=== PATIENT | male | born 1955 | race Caucasian/White ===

== ENCOUNTER 2019-02-07 18:14 | Inpatient (IN) | payer OTHER ==
[~2019-02-07] VITALS: Ht 167.6 cm; Wt 121.9 kg
[~2019-02-07 18:14] MED LIST: ALPRAZOLAM 0.50.5 MG PO; AMLODIPINE BESYL5 M1 PO; CATAPRES0.2 MG PO; CLONIDINE0.1 PO; COZAAR 50 MG TA50 M2; FLEXERIL PO; HYDROCODONE-APA1 TA1 PO; IBUPROFEN 800800 M1 PO; LASIX 20 MG TAB20 MG PO; LEXAPRO 10 MG T10 M1 PO; MOBIC15 MG PO; NEURONTIN 300300 M1 PO; NORCO 10-325 T1 EACH PO; SUMATRIPTAN SU100 MG PO; TESTOSTERO200 MG/1 M IM; TOPAMAX 25 MG T25 M1 PO; VALIUM5 MG PO; XANAX 0.5 MG0.5 MG PO; XANAX XR0.5 MG PO; ZANAFLEX4 MG PO
[2019-02-07 18:15] VITALS: BP 169/125
[2019-02-07 18:50] LABS: HEMATOCRIT 56.2 % (42.0-52.0); HEMOGLOBIN 18.5 gm/dL (14.0-18.0); MCH 30.5 pg (26.0-34.0); MCV 92.4 fL (80.0-100.0); PLATELET COUNT 241 thou/uL (150-400); RBC 6.09 mil/uL (4.50-6.00); WBC 20.6 thou/uL (4.0-11.0)
[2019-02-07 19:06] LABS: CALCIUM 9.4 mg/dL (8.5-10.1); CREATININE 1.3 mg/dL (0.7-1.3); POTASSIUM 4.7 mmol/L (3.5-5.1)
[2019-02-07 19:10] LABS: ALBUMIN 3.9 g/dL (3.4-5.0); TOTAL BILIRUBIN 1.6 mg/dL (<0.1-1.0); TOTAL PROTEIN 8.7 g/dL (6.4-8.2)
[2019-02-07 19:21] LABS: ABSOLUTE NEUTROPHILS 17.1 thou/uL (1.4-8.2); PLATELET ESTIMATE NORMAL
[2019-02-07 20:12] LABS: URINE BILIRUBIN NEGATIVE (Negative); URINE BLOOD 1+ (Negative); URINE CLARITY CLEAR; URINE COLOR YELLOW; URINE GLUCOSE-RANDOM* NEGATIVE (Negative); URINE KETONES NEGATIVE (Negative); URINE NITRITE-REFLEX NEGATIVE (Negative); URINE PROTEIN (DIPSTICK) TRACE (Negative); URINE SPECIFIC GRAVITY 1.015 (1.005-1.035)
[2019-02-07 20:19] LABS: URINE LEUKOCYTES-REFLEX 1+ (Negative)
[2019-02-07 20:46] LABS: HYALINE CASTS 0-3 Few /LPF (None Seen); SQUAMOUS 0-3 Few /LPF (0-3)
[2019-02-07 20:47] LABS: BACTERIA-REFLEX 1-9 Few /HPF (None Seen); CRYSTALS None Seen /LPF (None Seen); MUCUS 0-3 Light strn/LPF (None Seen); URINE RBC None Seen /HPF (0-2)
[2019-02-07 21:30] LABS: APTT 30.7 Seconds (24.5-32.8); INR 1.1; PROTIME 11.6 Seconds (9.3-11.4)
[2019-02-07 21:33] LABS: BE(vivo) -5.7 mmol/L (-2 to +3); HCO3 16.6 mmol/L (22.0-26.0); PCO2 26.3 mmHg (35.0-45.0); pH 7.419 (7.360-7.450); sO2 93.8 % (92.0-98.0)
[2019-02-07 22:07] VITALS: BP 114/67
[2019-02-07 22:36] VITALS: BP 108/62
[2019-02-07 22:49] VITALS: BP 112/67
[2019-02-08] VITALS (7 sets, daily range): BP systolic 108–135; BP diastolic 55–84
[2019-02-08 05:24] LABS: HEMATOCRIT 50.3 % (42.0-52.0); HEMOGLOBIN 16.6 gm/dL (14.0-18.0); MCH 30.7 pg (26.0-34.0); RBC 5.41 mil/uL (4.50-6.00); RDW 14.9 % (10.5-14.5); WBC 28.3 thou/uL (4.0-11.0)
[2019-02-08 05:35] LABS: CALCIUM 8.3 mg/dL (8.5-10.1); CREATININE 1.3 mg/dL (0.7-1.3)
[2019-02-08 05:38] LABS: POTASSIUM 3.2 mmol/L (3.5-5.1)
[2019-02-08 11:39] LABS: PHOSPHORUS 2.5 mg/dL (2.5-4.9)
[2019-02-08 11:48] LABS: URINE BLOOD 3+ (Negative); URINE GLUCOSE-RANDOM* NEGATIVE (Negative); URINE KETONES NEGATIVE (Negative); URINE LEUKOCYTES-REFLEX NEGATIVE (Negative); URINE PROTEIN (DIPSTICK) 1+ (Negative); URINE SPECIFIC GRAVITY >= 1.030 (1.005-1.035)
[2019-02-08 11:49] LABS: URINE CLARITY HAZY; URINE COLOR DARK YELLOW; URINE NITRITE-REFLEX POSITIVE (Negative)
[2019-02-08 11:50] LABS: ICTOTEST (BILI CONFIRMATORY) Negative (Negative); URINE BILIRUBIN NEGATIVE (Negative)
[2019-02-08 12:01] LABS: BACTERIA-REFLEX 1-9 Few /HPF (None Seen); CASTS None Seen /LPF (None Seen); CRYSTALS None Seen /LPF (None Seen); SQUAMOUS None Seen /LPF (0-3); URINE WBC-REFLEX None Seen /HPF (0-5)
[2019-02-08 12:04] LABS: BE(vivo) -4.5 mmol/L (-2 to +3); HCO3 19.4 mmol/L (22.0-26.0); PCO2 33.2 mmHg (35.0-45.0); PO2 78.6 mmHg (80.0-100.0); pH 7.385 (7.360-7.450); sO2 95.6 % (92.0-98.0)
--- NOTE | 2019-02-08 13:20 | EKG ---
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 : 1955 Requested By: Basilia Mcgill Order Number: [id number] MD: Rio Keyes Measurements Intervals [place] Rate: 137 P: 41 IA: 148 QRS: -59 QRSD: 104 T: 43 QT: 282 QTc: 426 Interpretive Statements Sinus tachycardia Incomplete RBBB and LAFB RSR' in V1 or V2, right VCD Poor R wave progression No interpretable ECGs available for comparison Electronically Signed On 02-08-2019 13:20:40 FREIGHT AGENT by Rio Keyes [email or web address] <ELECTRONICALLY SIGNED> By: Rio Keyes MD, FAC 02/08/19 1320 05 05 Rio Keyes MD, [facility] /EPI
[2019-02-08] MEDS ORDERED: PROVIGIL 100 M100 MG PO (18:25)
[2019-02-08 19:53] LABS: MCH 30.6 pg (26.0-34.0); MCHC 32.9 g/dL (28.0-37.0); MCV 92.9 fL (80.0-100.0); PLATELET COUNT 168 thou/uL (150-400); RBC 4.74 mil/uL (4.50-6.00); RDW 15.1 % (10.5-14.5); WBC 23.5 thou/uL (4.0-11.0)
[2019-02-08 19:54] LABS: HEMOGLOBIN 14.5 gm/dL (14.0-18.0)
[2019-02-08 20:01] LABS: CALCIUM 8.2 mg/dL (8.5-10.1); CREATININE 1.4 mg/dL (0.7-1.3); POTASSIUM 3.6 mmol/L (3.5-5.1)
[2019-02-08 20:15] LABS: ABSOLUTE NEUTROPHILS 21.9 thou/uL (1.4-8.2); ATYPICAL LYMPHS 1 %
[2019-02-09 03:43] VITALS: BP 121/71
[2019-02-09 05:40] LABS: HEMATOCRIT 42.8 % (42.0-52.0); HEMOGLOBIN 14.1 gm/dL (14.0-18.0); MCH 30.5 pg (26.0-34.0); MCV 92.2 fL (80.0-100.0); PLATELET COUNT 162 thou/uL (150-400); RBC 4.64 mil/uL (4.50-6.00); RDW 14.9 % (10.5-14.5); WBC 22.4 thou/uL (4.0-11.0)
[2019-02-09 06:07] LABS: ALBUMIN 2.3 g/dL (3.4-5.0); CALCIUM 8.2 mg/dL (8.5-10.1); CREATININE 1.1 mg/dL (0.7-1.3); MAGNESIUM 2.1 mg/dL (1.8-2.4); PHOSPHORUS 1.3 mg/dL (2.5-4.9); POTASSIUM 3.6 mmol/L (3.5-5.1); TOTAL BILIRUBIN 0.6 mg/dL (<0.1-1.0); TOTAL PROTEIN 6.1 g/dL (6.4-8.2)
[2019-02-09 06:54] LABS: ABSOLUTE NEUTROPHILS 19.9 thou/uL (1.4-8.2); PLATELET ESTIMATE NORMAL
[2019-02-09 06:55] LABS: ANISOCYTOSIS SLIGHT
[2019-02-09 07:44] VITALS: BP 115/73
[2019-02-09 15:25] VITALS: BP 117/85
[2019-02-09 20:31] VITALS: BP 200/81
[2019-02-09 20:42] VITALS: BP 186/75
[2019-02-10] VITALS (9 sets, daily range): BP systolic 151–194; BP diastolic 72–93
[2019-02-10 05:56] LABS: MCH 30.6 pg (26.0-34.0); MCHC 33.3 g/dL (28.0-37.0); MCV 91.8 fL (80.0-100.0); RBC 4.9 mil/uL (4.50-6.00); RDW 15.2 % (10.5-14.5); WBC 18.8 thou/uL (4.0-11.0)
[2019-02-10 06:09] LABS: ALBUMIN 2.6 g/dL (3.4-5.0); CALCIUM 8.4 mg/dL (8.5-10.1); POTASSIUM 3.4 mmol/L (3.5-5.1)
[2019-02-11 04:32] VITALS: BP 165/82
[2019-02-11 05:48] LABS: HEMATOCRIT 45.8 % (42.0-52.0); HEMOGLOBIN 15.2 gm/dL (14.0-18.0); MCH 30.5 pg (26.0-34.0); MCHC 33.1 g/dL (28.0-37.0); MCV 92.2 fL (80.0-100.0); RBC 4.97 mil/uL (4.50-6.00); RDW 14.9 % (10.5-14.5); WBC 16.6 thou/uL (4.0-11.0)
[2019-02-11 06:05] LABS: CALCIUM 8.4 mg/dL (8.5-10.1); CREATININE 0.9 mg/dL (0.7-1.3); POTASSIUM 3.6 mmol/L (3.5-5.1)
[2019-02-11 07:29] VITALS: BP 179/89
[2019-02-11 11:32] VITALS: BP 158/79
--- NOTE | 2019-02-11 14:06 | PATH ---
[facility] [address] [place] [address] PATHOLOGY RPT PROCEDURE Name: LOUIE CLARK JR Room #: 352-P ADM IN M.R.#: [id number] Admission: 02/07/19 Date of : 51 Discharge: Report #: [id number] Path Case #: [id number] [facility] Accession Number: [id number] . 01 Material submitted: . appendix - APPENDIX . 01 Clinical history: . Acute appendicitis, perforated . 02 Diagnosis: Appendix, appendectomy: - Marked acute appendicitis along with marked acute serositis and changes compatible with perforation. - Fibrous obliteration of the tip. 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 02 Electronically signed: . Merlyn Santiago MD, Pathologist NPI- [id number] . 01 Gross description: . Received in formalin, labeled "Louie Clark JR, appendix", is an disrupted appendix measuring 5.3 cm length and ranging from 0.5 cm (proximal) to 0.1 cm (distal) in diameter and attached mesoappendix (5.5 x 1.0 x 0.4 cm). The proximal resection margin is disrupted up to 2.0 cm in length. The proximal resection margin is inked black and at the disrupted area orange. The serosa is covered by purulent exudate and possible perforation. The lumen proximal to mid dilated and filled with hemorrhagic material and medial to distal stenotic. The wall has an average thickness of 0.1 cm. The aliyah-appendiceal soft tissue has a yellow cut surface. No discrete fecalith is identified. Representatively submitted in A1-A2 (B2 = possible perforation). ([facility]; 02/09/2019) [facility] 02/09/2019 1804 Local . 02 Pathologist provided ICD-10: K35.80 . 02 CPT . 297074 Specimen Comment: A courtesy copy of this report has been sent to [phone], [phone]- Specimen Comment: [phone], Specimen Comment: Report sent to ,DR BOBBY / DR SEWELL Performed at: [address] [place] [address] PATHOLOGY RPT PROCEDURE Name: LOUIE CLARK Room #: 352-P ADM IN M.R.#: [id number] Admission: 02/07/19 Date of : 51 Discharge: Report #: [id number] Path Case #: [id number] [address] [facility] [address], [place] [id number] MD Eusebio Torrez MD Phone: [phone] Performed at: [address] [id number] MD Merlyn Santiago MD Phone: [phone]
[2019-02-11 15:30] VITALS: BP 157/82
[2019-02-11 19:57] VITALS: BP 160/77
[2019-02-12 04:02] VITALS: BP 179/75
[2019-02-12 06:19] LABS: ALBUMIN 2.5 g/dL (3.4-5.0); CALCIUM 8.4 mg/dL (8.5-10.1); CREATININE 0.8 mg/dL (0.7-1.3); MAGNESIUM 2.2 mg/dL (1.8-2.4); PHOSPHORUS 1.9 mg/dL (2.5-4.9); POTASSIUM 3.5 mmol/L (3.5-5.1); TOTAL BILIRUBIN 0.6 mg/dL (<0.1-1.0); TOTAL PROTEIN 6.2 g/dL (6.4-8.2)
[2019-02-12 07:42] VITALS: BP 150/74
[2019-02-12 15:12] VITALS: BP 143/87
[2019-02-12 19:21] VITALS: BP 150/79
[2019-02-13 03:21] VITALS: BP 167/91
[2019-02-13 05:59] LABS: CALCIUM 8.4 mg/dL (8.5-10.1); CREATININE 0.9 mg/dL (0.7-1.3); MAGNESIUM 2.1 mg/dL (1.8-2.4); PHOSPHORUS 2.5 mg/dL (2.5-4.9); POTASSIUM 3.7 mmol/L (3.5-5.1)
[2019-02-13 09:48] LABS: HEMATOCRIT 48.3 % (42.0-52.0); HEMOGLOBIN 15.8 gm/dL (14.0-18.0); MCH 30.3 pg (26.0-34.0); MCHC 32.7 g/dL (28.0-37.0); MCV 92.9 fL (80.0-100.0); PLATELET COUNT 199 thou/uL (150-400); RDW 15.2 % (10.5-14.5); WBC 20.4 thou/uL (4.0-11.0)
[2019-02-13 10:58] LABS: ABSOLUTE NEUTROPHILS 15.7 thou/uL (1.4-8.2); PLATELET ESTIMATE NORMAL
[2019-02-13 15:48] VITALS: BP 149/86
[2019-02-13 20:00] VITALS: BP 149/76
[2019-02-14 03:25] VITALS: BP 151/74
[2019-02-14 04:26] LABS: CALCIUM 8.6 mg/dL (8.5-10.1); MAGNESIUM 2.1 mg/dL (1.8-2.4); PHOSPHORUS 2.2 mg/dL (2.5-4.9); POTASSIUM 3.8 mmol/L (3.5-5.1)
[2019-02-14 08:05] VITALS: BP 149/64
[2019-02-14 11:04] LABS: URINE BILIRUBIN NEGATIVE (Negative); URINE BLOOD NEGATIVE (Negative); URINE CLARITY CLEAR; URINE COLOR YELLOW; URINE GLUCOSE-RANDOM* NEGATIVE (Negative); URINE KETONES NEGATIVE (Negative); URINE LEUKOCYTES NEGATIVE (Negative); URINE NITRITE NEGATIVE (Negative); URINE PROTEIN (DIPSTICK) NEGATIVE (Negative); URINE SPECIFIC GRAVITY 1.015 (1.005-1.035); URINE UROBILINOGEN 0.2 E.U./dl (0.2-1.0)
[2019-02-14 15:08] VITALS: BP 147/66
[2019-02-14 19:30] VITALS: BP 165/72
[2019-02-15 06:00] VITALS: BP 140/66
[2019-02-15 06:05] LABS: HEMATOCRIT 44.1 % (42.0-52.0); HEMOGLOBIN 14.6 gm/dL (14.0-18.0); MCH 30.2 pg (26.0-34.0); MCV 91.4 fL (80.0-100.0); RBC 4.82 mil/uL (4.50-6.00); WBC 18.2 thou/uL (4.0-11.0)
[2019-02-15 06:20] LABS: CALCIUM 8.5 mg/dL (8.5-10.1); CREATININE 0.9 mg/dL (0.7-1.3); MAGNESIUM 2.1 mg/dL (1.8-2.4); PHOSPHORUS 2.5 mg/dL (2.5-4.9); POTASSIUM 3.4 mmol/L (3.5-5.1)
[2019-02-15 07:51] VITALS: BP 158/65
[2019-02-15 15:01] VITALS: BP 131/61
[2019-02-15 19:22] VITALS: BP 149/64
[2019-02-16 04:35] VITALS: BP 130/54
[2019-02-16 05:04] LABS: HEMATOCRIT 41.9 % (42.0-52.0); HEMOGLOBIN 13.9 gm/dL (14.0-18.0); MCH 30.3 pg (26.0-34.0); MCHC 33.2 g/dL (28.0-37.0); MCV 91.4 fL (80.0-100.0); RBC 4.59 mil/uL (4.50-6.00); RDW 15.1 % (10.5-14.5)
[2019-02-16 05:10] LABS: CALCIUM 8.4 mg/dL (8.5-10.1); CREATININE 0.9 mg/dL (0.7-1.3); PHOSPHORUS 2.7 mg/dL (2.5-4.9); POTASSIUM 3.9 mmol/L (3.5-5.1)
[2019-02-16 07:31] VITALS: BP 140/59
[2019-02-16] MEDS ORDERED: FLOMAX0.4 MG PO (08:39)
[2019-02-16] MEDS ORDERED: NEURONTIN600 MG PO (08:40)
[2019-02-16] MEDS ORDERED: AUGMENTIN 875-1 EACH PO (08:44)
[2019-02-16 15:27] VITALS: BP 139/61
[2019-02-16 19:57] VITALS: BP 137/78
[2019-02-17 04:29] VITALS: BP 122/61
[2019-02-17 07:33] VITALS: BP 124/74
[2019-02-17 12:43] VITALS: BP 124/74
[2019-02-17 15:25] VITALS: BP 124/74
== END 2019-02-17 17:02 | disposition home health service (06) | DRG 853 ==
LOC: ER 18:14 → 3W 21:32 → EROBS 21:32 → 3W 22:28 → ENTRNSPT 02-17 16:33 → 3W 02-17 17:02
PROVIDERS: Emergency Medicine Emergency Medical Services; Hospitalist; Nurse Practitioner Acute Care; ADMIT Internal Medicine
PROC: 0DTJ4ZZ Resection of Appendix, Percutaneous Endoscopic Approach (ICD-10-PCS; principal; 2019-02-08)
PROC: 3E0336Z Introduction of Nutritional Substance into Peripheral Vein, Percutaneous Approach (ICD-10-PCS; 2019-02-11)
PROC: 0D9670Z Drainage of Stomach with Drainage Device, Via Natural or Artificial Opening (ICD-10-PCS; 2019-02-11)
PROC: 02HV33Z Insertion of Infusion Device into Superior Vena Cava, Percutaneous Approach (ICD-10-PCS; 2019-02-11)
PROC: B548ZZA Ultrasonography of Superior Vena Cava, Guidance (ICD-10-PCS; 2019-02-11)
DX: A41.9 Sepsis, unspecified organism (principal); K35.33 Acute appendicitis with perforation, localized peritonitis, and gangrene, with abscess; N39.0 Urinary tract infection, site not specified; E46 Unspecified protein-calorie malnutrition; J98.11 Atelectasis; K56.7 Ileus, unspecified; Z68.41 Body mass index [BMI] 40.0-44.9, adult; G35 Multiple sclerosis; F41.9 Anxiety disorder, unspecified; I10 Essential (primary) hypertension; G43.909 Migraine, unspecified, not intractable, without status migrainosus; F32.9 Major depressive disorder, single episode, unspecified; G90.4 Autonomic dysreflexia; N40.1 Benign prostatic hyperplasia with lower urinary tract symptoms; R33.8 Other retention of urine; E66.01 Morbid (severe) obesity due to excess calories; G90.8 Other disorders of autonomic nervous system; E29.1 Testicular hypofunction; B95.5 Unspecified streptococcus as the cause of diseases classified elsewhere; Z90.49 Acquired absence of other specified parts of digestive tract; Z88.7 Allergy status to serum and vaccine; Z88.8 Allergy status to other drugs, medicaments and biological substances; Z88.6 Allergy status to analgesic agent; Z88.1 Allergy status to other antibiotic agents; Z91.040 Latex allergy status; Z79.899 Other long term (current) drug therapy; Z82.49 Family history of ischemic heart disease and other diseases of the circulatory system; Z98.1 Arthrodesis status
CPT/HCPCS: 10080; 10879; 27000; 50101; 50411; 50555; 50558; 50739; 50740; 51489; 52265; 52266; 53307; 53310; 53312; 54022; 54118; 56462; 56525; 56526; 57103; 62110; 62900; 70005